=== PATIENT | male | born 2000 | race American Indian/Alaskan Native ===

== ENCOUNTER 2019-01-22 02:30 | Emergency (ER) | payer OTHER ==
[2019-01-22] MEDS ORDERED: IBUPROFEN PO ONE (02:56)
[2019-01-22] MEDS ORDERED: DELTASONE PO ONE (02:57)
[2019-01-22] MEDS ORDERED: TYLENOL PO ONE (02:57)
--- NOTE | 2019-01-22 03:43 | XRay Report ---
RIGHT WRIST, 4 VIEWS, 01/22/2019 INDICATION / CLINICAL INFORMATION: Pain - right wrist. COMPARISON: None available. FINDINGS: No fracture or dislocation. No soft tissue abnormality. IMPRESSION: Negative exam. Signer Name: Serenity Warren MD Signed: 01/22/2019 3:38 AM Workstation Name: [id number]
--- NOTE | 2019-01-22 04:04 | Emergency Department Report ---
ED Upper Extremity Inj HPI - General Chief Complaint: Extremity Injury, Upper Stated Complaint: RIGHT WRIST PAIN Time Seen by Provider: 01/22/19 02:40 Source: patient Mode of arrival: Ambulatory Limitations: No Limitations - History of Present Illness Initial Comments: Patient is a 18-year-old -[place] male with no past medical history presents to the ED with a complaint of acute onset of persistent severe nontraumatic right wrist pain and swelling for the last 2 hours. Patient states that he woke up with pain about 2 hours ago and that the swelling has worsened. Patient denies traumatic injury, heavy lifting, nausea, vomiting, numbness and tingling of her right hand and right wrist, dizziness, neck pain, chest pain or shortness of breath. MD Complaint: Injury to:: right, wrist -: Sudden, hour(s) (2) Other Extremity Injury: Wrist: Right (pain, swelling) Other Injuries: none Handedness: right Place: home Severity scale (0 -10): 7 Improves With: none Worsens With: movement of extremity Context: other (Spontaneous) Associated Symptoms: denies other symptoms. denies: weakness, numbness, neck pain, suspects foreign body, nausea/vomiting, heard/felt popping sensat - Related Data Previous Rx's Medication Instructions Recorded Last Taken Type Naproxen [Naprosyn TAB] 500 mg PO Q12H PRN #20 tablet 01/22/19 Unknown Rx tiZANidine [Zanaflex 4mg TAB] 4 mg PO Q8H PRN #15 tablet 01/22/19 Unknown Rx traMADol [Ultram 50 MG tab] 50 mg PO Q6HR PRN #15 tablet 01/22/19 Unknown Rx Allergies Allergy/AdvReac Type Severity Reaction Status Date / Time No Known Allergies Allergy Unverified 01/22/19 04:08 ED Review of Systems ROS: Stated complaint: RIGHT WRIST PAIN Other details as noted in HPI Constitutional: denies: chills, fever Eyes: denies: eye pain, eye discharge, vision change ENT: denies: ear pain, throat pain Respiratory: denies: cough, shortness of breath, wheezing Cardiovascular: denies: chest pain, palpitations Endocrine: no symptoms reported Gastrointestinal: denies: abdominal pain, nausea, diarrhea Genitourinary: denies: urgency, dysuria Musculoskeletal: joint swelling (right wrist), arthralgia (right wrist). denies: back pain Skin: denies: rash, lesions Neurological: denies: headache, weakness, paresthesias Psychiatric: denies: anxiety, depression Hematological/Lymphatic: denies: easy bleeding, easy bruising ED Past Medical Hx - Past Medical History Previous Medical History?: No - Surgical History Past Surgical History?: No - Social History Smoking Status: Never Smoker Substance Use Type: None - Medications Home Medications: Home Medications Medication Instructions Recorded Confirmed Last Taken Type Naproxen [Naprosyn TAB] 500 mg PO Q12H PRN #20 tablet 01/22/19 Unknown Rx tiZANidine [Zanaflex 4mg TAB] 4 mg PO Q8H PRN #15 tablet 01/22/19 Unknown Rx traMADol [Ultram 50 MG tab] 50 mg PO Q6HR PRN #15 tablet 01/22/19 Unknown Rx ED Physical Exam - General Limitations: No Limitations General appearance: alert, in no apparent distress - Head Head exam: Present: atraumatic, normocephalic, normal inspection - Eye Eye exam: Present: normal appearance, PERRL, EOMI Pupils: Present: normal accommodation - ENT ENT exam: Present: normal exam, normal orophraynx, mucous membranes moist, TM's normal bilaterally, normal external ear exam - Neck Neck exam: Present: normal inspection, full ROM - Respiratory Respiratory exam: Present: normal lung sounds bilaterally. Absent: respiratory distress, wheezes, rales, rhonchi, chest wall tenderness, accessory muscle use, decreased breath sounds, prolonged expiratory - Cardiovascular Cardiovascular Exam: Present: regular rate, normal rhythm, normal heart sounds. Absent: systolic murmur, diastolic murmur, rubs, gallop - GI/Abdominal GI/Abdominal exam: Present: soft, normal bowel sounds. Absent: distended, tenderness, guarding, hyperactive bowel sounds, organomegaly - Rectal Rectal exam: Present: deferred - Extremities Exam Extremities exam: Present: normal inspection, tenderness (right wrist tenderness with mild swelling), normal capillary refill, joint swelling (right wrist tenderness and swelling). Absent: full ROM, pedal edema - Back Exam Back exam: Present: normal inspection, full ROM. Absent: tenderness, CVA tenderness (R), muscle spasm, paraspinal tenderness, vertebral tenderness - Neurological Exam Neurological exam: Present: alert, oriented X3, CN II-XII intact, normal gait, reflexes normal - Psychiatric Psychiatric exam: Present: normal affect, normal mood - Skin Skin exam: Present: warm, dry, intact, normal color. Absent: rash ED Course - Reevaluation(s) Reevaluation #1: 01/22/19 04:13 Patient is alert and oriented 3 and is not in distress with normal vital signs. Patient was treated for pain in the ED and right wrist x-ray shows no acute fractures or subluxations. Patient's symptoms in the absence of a traumatic event is likely due to acute tendinitis, or muscle strain. Patient's right wrist was splinted with a Velcro splint and the patient discharged home on pain medications and advised to follow-up with his primary care physician in 5-7 days for reevaluation. Patient was advised to return to the ED immediately if symptoms get worse. ED Medical Decision Making - Radiology Data Radiology results: report reviewed, image reviewed Right wrist x-ray: No acute fractures or subluxations - Medical Decision Making Patient is alert and oriented 3 and is not in distress with normal vital signs. Patient was treated for pain in the ED and right wrist x-ray shows no acute fractures or subluxations. Patient's symptoms in the absence of a traumatic event is likely due to acute tendinitis, or muscle strain. Patient's right wrist was splinted with a Velcro splint and the patient discharged home on pain medications and advised to follow-up with his primary care physician in 5-7 days for reevaluation. Patient was advised to return to the ED immediately if symptoms get worse. - Differential Diagnosis Right wrist tendonitis; Muscle strain, wrist sprain, wrist fractures Critical care attestation.: If time is entered above; I have spent that time in minutes in the direct care of this critically ill patient, excluding procedure time. ED Disposition Clinical Impression: Muscle strain of right wrist, Right wrist tendonitis Sprain of right wrist Qualifiers: Encounter type: initial encounter Qualified Code(s): S63.501A - Unspecified sprain of right wrist, initial encounter Disposition: TO HOME OR SELFCARE Is pt being admited?: No Does the pt Need Aspirin: No Condition: Stable Instructions: Muscle Strain (ED), Tendinitis (ED), Wrist Sprain (ED) Additional Instructions: Take medications with food, drink plenty of fluids and follow-up with your primary care physician in 5-7 days for reevaluation. Return to the ED immediately if symptoms get worse. Prescriptions: Naproxen [Naprosyn TAB] 500 mg PO Q12H PRN #20 tablet PRN Reason: Pain , Severe (7-10) traMADol [Ultram 50 MG tab] 50 mg PO Q6HR PRN #15 tablet PRN Reason: Pain tiZANidine [Zanaflex 4mg TAB] 4 mg PO Q8H PRN #15 tablet PRN Reason: Spasms Referrals: [facility] [Outside] - 3-5 Days Time of Disposition: 04:04 Print Language: STATELESS
[2019-01-22 04:11] VITALS: BP 130/90
== END 2019-01-22 04:30 | disposition home or self-care (01) ==
LOC: ED 02:30
DX: S63.501A Unspecified sprain of right wrist, initial encounter (principal); M77.9 Enthesopathy, unspecified; X58.XXXA Exposure to other specified factors, initial encounter; Y93.89 Activity, other specified; Y92.89 Other specified places as the place of occurrence of the external cause; Y99.8 Other external cause status
CPT/HCPCS: J7512

== ENCOUNTER 2022-02-16 13:00 | Emergency (ER) | payer SELFPAY ==
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
[2022-02-16 19:10] VITALS: BP 134/78
== END 2022-02-16 19:09 | disposition home or self-care (01) ==
LOC: ED 13:00
DX: S16.1XXA Strain of muscle, fascia and tendon at neck level, initial encounter (principal); S39.012A Strain of muscle, fascia and tendon of lower back, initial encounter; M79.621 Pain in right upper arm; V89.2XXA Person injured in unspecified motor-vehicle accident, traffic, initial encounter; Y93.89 Activity, other specified; Y92.89 Other specified places as the place of occurrence of the external cause; Y99.8 Other external cause status
CPT/HCPCS: 99282